=== PATIENT | female | born 1970 | race Caucasian/White ===

== ENCOUNTER 2023-05-21 08:58 | Emergency (ER) | payer OTHER ==
[~2023-05-21] VITALS: Ht 157.5 cm; Wt 81.6 kg
[2023-05-21] MEDS ORDERED: IBUP-1955 PO (09:11)
--- NOTE | 2023-05-21 09:14 | NUR ---
Patient alert oriented x4, with c/o right wrist pain s/p doing cpr. Informed of plan of care, awaiting MD exam and radiology.
[2023-05-21] MEDS ORDERED: IBUPROFEN 600 MG TABLET PO ONE (09:15)
[2023-05-21] MEDS ORDERED: IBUPROFEN 600 MG TABLET ONE (09:18)
--- NOTE | 2023-05-21 09:20 | NUR ---
Patient medicated as per order.
--- NOTE | 2023-05-21 09:26 | NUR ---
Pre belkys splint applied as per order. Awaiting MD re-eval.
[2023-05-21 10:07] VITALS: BP 142/90; O2SAT 96
== END 2023-05-21 10:08 | disposition home or self-care (01) ==
LOC: ER 08:58
DX: S63.501A Unspecified sprain of right wrist, initial encounter (principal); Z79.1 Long term (current) use of non-steroidal anti-inflammatories (NSAID); X50.1XXA Overexertion from prolonged static or awkward postures, initial encounter; Y93.89 Activity, other specified; Y92.89 Other specified places as the place of occurrence of the external cause; Y99.0 Civilian activity done for income or pay
CPT/HCPCS: 73110; A4663